=== PATIENT | female | born 1950 | race Caucasian/White ===

== ENCOUNTER 2018-10-26 20:05 | Inpatient (IN) ==
--- NOTE | 2018-10-26 20:17 | Emergency Department Note ---
Disposition Clinical Impression: Generalized weakness Valproic acid toxicity Qualifiers: Encounter type: initial encounter Injury intent: accidental or unintentional Qualified Code(s): T42.6X1A - Poisoning by other antiepileptic and sedative-h ypnotic drugs, accidental (unintentional), initial encounter Disposition: Admitted As Inpatient Condition: Good Referrals: Debra Jose CNP [Primary Care Provider] - Forms: ED Satisfaction Letter, Work/School Release Time of Disposition: 21:24 Weakness HPI - General Chief complaint: ED General Medical Stated complaint: Weakness, general illness onset this AM Time Seen by Provider: 10/26/18 20:12 Source: patient, family, EMS Mode of arrival: EMS Limitations: no limitations Nursing Notes Reviewed: Yes Vital Signs Reviewed: Yes - History of Present Illness HPI Narrative: Patient presents with general weakness that has been worse since this morning. She states she recently has been treated with an antibiotic for urinary tract infection and is "almost done with it". She indicates she still has some urinary troubles but cannot articulate what they are. She has had a previous stroke with right-sided deficits for which he wears a right ankle brace. She denies any new localized numbness, tingling or weakness. She states she is been on her normal medicines were normal oral intake. She denies headache or visual changes. She denies neck pain or stiffness. She denies chest pain or palpitations. She has not had increased shortness of breath does admit to COPD with wheezing. She uses an occasional inhaler. She denies abdominal pain, nausea, vomiting or diarrhea. She denies any ill exposures. She has not had recent fall or injury. She is noted by EMS to have a room air saturation of 89% was placed on O2. On arrival she has a blood sugar 267. EMS did transmit an EK G performed at 7:42 PM. This showed a sinus rhythm with a rate of 107, axis of 70, WA interval of 1:30 and a QT/QTC of 340/422. She had slight lateral ST depression on V5 and V6. No other acute ST or T-wave changes are seen for ischemia or infarction. This is on my interpretation. Pt Subjective Complaint: generalized weakness/fatigue - Related Data Home Medications Medication Instructions Recorded Confirmed ARIPiprazole [Aripiprazole Odt] 15 mg PO DAILY 10/26/18 10/26/18 Albuterol Sulfate [Albuterol 8.5 gm IH Q6H PRN 10/26/18 10/26/18 Sulfate Hfa] Amlodipine Besylate 10 mg PO DAILY 10/26/18 10/26/18 Atorvastatin [Lipitor] 20 mg PO HS 10/26/18 10/26/18 Benztropine Mesylate 1 mg PO DAILY 10/26/18 10/26/18 Carbidopa/Levodopa 1 each PO TID 10/26/18 10/26/18 [Carbidopa-Levodopa 25-100 Tab] Divalproex (12 HR) [Depakote (12 500 mg PO BID 10/26/18 10/26/18 HR)] Lisinopril [Zestril] 20 mg PO DAILY 10/26/18 10/26/18 hydroCHLOROthiazide 25 mg PO DAILY 10/26/18 10/26/18 [Hydrochlorothiazide] metFORMIN [Glucophage] 1,000 mg PO BIDWM 10/26/18 10/26/18 Allergies Allergy/AdvReac Type Severity Reaction Status Date / Time No Known Allergies Allergy Verified 11/16/17 13:24 All systems ED: reviewed and negative except as stated. Past Medical History - Past Medical History Attestation: Yes The following information was validated with the patient. Source: patient, old records reviewed, obtained from family, nursing notes reviewed Medical history: Reports: COPD, CVA, hypertension Surgical history: Reports: hysterectomy - Social History Smoking Status: Current every day smoker Smokeless Tobacco Status: No Alcohol use: Reports: none Drug use: Reports: none Physical Exam - General Limitations: physical limitation (Prior stroke) General appearance: alert, in no apparent distress - Head Head exam: atraumatic, normocephalic, normal inspection - Eye Eye exam: Present: normal appearance, PERRL, EOMI. Absent: scleral icterus, conjunctival injection - ENT ENT exam: normal exam, normal oropharynx, mucous membranes moist - Neck Neck exam: Present: normal inspection, full ROM, trachea midline. Absent: tenderness, lymphadenopathy - Chest Chest inspection: Present: normal inspection, symmetric chest wall rise - Respiratory Respiratory exam: Present: wheezes, prolonged expiratory phase. Absent: respiratory distress, accessory muscle use - Cardiovascular Cardiovascular exam: Present: regular rate, normal rhythm, tachycardia, normal heart sounds - Abdominal Exam Abdominal exam: Present: soft, Non-Tender, normal bowel sounds. Absent: tenderness, distention, guarding, rebound, rigidity - Extremities Exam Extremities exam: Present: normal inspection, full ROM, normal capillary refill, other (Patient has a brace on her right ankle. She has no tenderness to compression of the calves or thighs.). Absent: tenderness, pedal edema - Expanded Lower Extremity Exam Neurovascular/Tendon exam: Present: normal capillary refill Gait: not tested/not observed - Neurological Exam Neurological exam: Present: alert, oriented X3 - Psychiatric Psychiatric exam: Present: normal affect, normal mood - Skin Skin exam: Present: warm, dry, intact, normal color. Absent: rash, diaphoresis, pallor Course Course Narrative: 2124: With return of all testing, the patient and her sons are advised of results. She continues to feel weak, has an elevated lactic acid and is prerenal on her kidney function. She is written for a liter of fluids and a page has been placed to Dr. Ponce to discuss inpatient observation and hydrat ion. At this point she has not had a fever or leukocytosis. She is finishing her last dose antibiotics for urinary tract infection tonight and does not show current urinary tract infection. I will discuss other treatment with Dr. Ponce with admission orders. 2129: Care is discussed with Dr. Ponce. He is agreeable with observation with hydration. He does not want started by medics this time. The patient does not appear to be septic. Repeat exam is of improved mental status. She has good skin turgor. She does not have any persistent tachycardia or hypotension. She will not need to go on continued aggressive hydration or antibiotics at this time. Verbal orders have been obtained for her observation. Vital Signs Temperature 99.4 F 10/26/18 20:08 Pulse Rate 99 10/26/18 20:08 Respiratory Rate 16 10/26/18 20:08 Blood Pressure 144/83 10/26/18 20:08 O2 Sat by Pulse Oximetry 97 10/26/18 20:08 Temperature 99.4 F 10/26/18 20:08 Pulse Rate 99 10/26/18 20:08 Respiratory Rate 16 10/26/18 20:08 Blood Pressure 144/83 10/26/18 20:08 O2 Sat by Pulse Oximetry 97 10/26/18 20:08 Oxygen Delivery Oxygen Delivery Nasal Cannula Weakness - Differential Diagnosis Differential Diagnosis: Likely: anemia, hypoglycemia, sepsis/infection, dehydration, medication effect, metabolic, thyroid/endocrine disorder - Medical Records Medical records reviewed: Yes I reviewed the patient's medical records. - Lab Data Lab results reviewed: Yes I reviewed the patient's lab results. Result diagrams: 10/26/18 20:30 10/26/18 20:30 Lab Results 10/26/18 10/26/18 10/26/18 Range/Units 20:30 20:30 20:30 WBC 9.6 (4.3-11.1) K/mcL RBC 4.51 (3.82-4.97) M/mcL Hgb 14.0 (11.5-15.4) g/dL Hct 41.5 (35.3-44.9) % MCV 92.0 (83.0-100.0) fL MCH 31.0 (28.0-33.3) pg MCHC 33.7 (31.6-35.5) g/dL RDW 13.0 (11.5-14.5) % Plt Count 128 L (140-400) K/mcL MPV 12.4 (9.4-12.4) fL Immature Gran % 0.5 (0-4) % Seg Neutrophils % 86.2 % Lymphocytes % 6.1 % Monocytes % 6.3 % Eosinophils % 0.6 % Basophils % 0.3 % Neutrophils # 8.3 (1.6-8.9) K/mcL Lymphocytes # 0.6 (0.6-4.6) K/mcL Monocytes # 0.6 (0.0-1.3) K/mcL Eosinophils # 0.1 (0.0-0.6) K/mcL Basophils # 0.0 (0.0-0.2) K/mcL Sodium 142 (136-145) mEq/L Potassium 3.1 L (3.5-5.1) mEq/L Chloride 103 (98-107) mEq/L Carbon Dioxide 26 (23-29) mEq/L BUN 29 H (8-23) mg/dL Creatinine 0.84 (0.60-1.20) mg/dL Est GFR ( Amer) > 60 (> 60) Est GFR (Non-Af Amer) > 60 (> 60) BUN/Creatinine Ratio 35 H (6-26) Glucose 232 H (70-105) mg/dL Calculated Osmolality 307 H (280-300) Lactic Acid 3.0 H (0.5-2.2) mmol/L Calcium 9.5 (8.6-10.3) mg/dL Total Bilirubin 0.6 (0.3-1.0) mg/dL Direct Bilirubin 0.2 (0.0-0.2) mg/dL Indirect Bilirubin 0.4 (0.0-1.2) mg/dL AST 11 L (13-39) Units/L ALT 2 L (7-52) Units/L Alkaline Phosphatase 56 (34-104) Units/L Troponin I 0.03 (< 0.04) ng/mL Serum Total Protein 7.1 (6.4-8.9) g/dL Albumin 4.2 (3.5-5.7) g/dL Globulin 2.9 (2.4-3.5) g/dL Albumin/Globulin Ratio 1.4 (1.1-2.2) Urine Color (Yellow) Urine Clarity (Clear) Urine pH (5.0-8.0) pH Units Ur Specific [place] (1.010-1.025) Urine Protein (Neg-Trace) mg/dL Urine Glucose (UA) (Normal) mg/dL Urine Ketones (Negative) mg/dL Urine Blood (Negative) Urine Nitrite (Negative) Urine Bilirubin (Negative) Urine Urobilinogen (Normal) mg/dL Ur Leukocyte Esterase (Negative) Urine Microscopic WBC (0-3) per hpf Ur Squamous Epith Cells (None-Few) per lpf Amorphous Sediment (Few) Hyaline Casts (None-Few) per lpf Urine Mucus (Few) Ur Culture Indicated? (NO) Valproic Acid (50-100) mcg/mL 10/26/18 10/26/18 Range/Units 20:30 20:59 WBC (4.3-11.1) K/mcL RBC (3.82-4.97) M/mcL Hgb (11.5-15.4) g/dL Hct (35.3-44.9) % MCV (83.0-100.0) fL MCH (28.0-33.3) pg MCHC (31.6-35.5) g/dL RDW (11.5-14.5) % Plt Count (140-400) K/mcL MPV (9.4-12.4) fL Immature Gran % (0-4) % Seg Neutrophils % % Lymphocytes % % Monocytes % % Eosinophils % % Basophils % % Neutrophils # (1.6-8.9) K/mcL Lymphocytes # (0.6-4.6) K/mcL Monocytes # (0.0-1.3) K/mcL Eosinophils # (0.0-0.6) K/mcL Basophils # (0.0-0.2) K/mcL Sodium (136-145) mEq/L Potassium (3.5-5.1) mEq/L Chloride (98-107) mEq/L Carbon Dioxide (23-29) mEq/L BUN (8-23) mg/dL Creatinine (0.60-1.20) mg/dL Est GFR ( Amer) (> 60) Est GFR (Non-Af Amer) (> 60) BUN/Creatinine Ratio (6-26) Glucose (70-105) mg/dL Calculated Osmolality (280-300) Lactic Acid (0.5-2.2) mmol/L Calcium (8.6-10.3) mg/dL Total Bilirubin (0.3-1.0) mg/dL Direct Bilirubin (0.0-0.2) mg/dL Indirect Bilirubin (0.0-1.2) mg/dL AST (13-39) Units/L ALT (7-52) Units/L Alkaline Phosphatase (34-104) Units/L Troponin I (< 0.04) ng/mL Serum Total Protein (6.4-8.9) g/dL Albumin (3.5-5.7) g/dL Globulin (2.4-3.5) g/dL Albumin/Globulin Ratio (1.1-2.2) Urine Color Yellow (Yellow) Urine Clarity Clear (Clear) Urine pH 5.5 (5.0-8.0) pH Units Ur Specific [place] 1.020 (1.010-1.025) Urine Protein 100 H (Neg-Trace) mg/dL Urine Glucose (UA) Normal (Normal) mg/dL Urine Ketones 40 H (Negative) mg/dL Urine Blood Negative (Negative) Urine Nitrite Negative (Negative) Urine Bilirubin Negative (Negative) Urine Urobilinogen Normal (Normal) mg/dL Ur Leukocyte Esterase Negative (Negative) Urine Microscopic WBC 0-3 (0-3) per hpf Ur Squamous Epith Cells Few (None-Few) per lpf Amorphous Sediment Few (Few) Hyaline Casts Moderate H (None-Few) per lpf Urine Mucus Few (Few) Ur Culture Indicated? NO (NO) Valproic Acid > 150 H* (50-100) mcg/mL - Radiology Data Radiology results reviewed: Yes I reviewed the patient's radiology results. Single view chest x-ray is performed. This does not demonstrate evidence for infiltrate, effusion, pneumothorax, foreign body. Patient has mild increase interstitial markings and hyperexpansion. The cardiac silhouette is normal. I do not see abnormality to the osseous structures of the chest. There are no chest x-rays for comparison. This is on my interpretation. Impressions Chest X-Ray 10/26/18 20:18 IMPRESSION: No acute process. D/ / Jesus Silverman MD / Jesus Silverman MD Interpreting Provider: Jesus Silverman MD - EKG Data EKG attestation: Yes I reviewed and interpreted this EKG. EKG shows normal: sinus rhythm, axis, intervals, QRS complexes, ST-T waves Rate: tachycardia (103) Interpretation: no acute changes, other (Plan artifact without other acute ST or T-wave changes for ischemia or infarction.)
[2018-10-26] MEDS ORDERED: Ipratropium/Albuterol Neb 3 ML IH ONE (20:18)
[2018-10-26 20:39] LABS: Basophils % 0.3 %; Eosinophils # 0.1 K/mcL (0.0-0.6); Eosinophils % 0.6 %; Hematocrit 41.5 % (35.3-44.9); Immature Granulocytes % 0.5 % (0-4); Lymphocytes # 0.6 K/mcL (0.6-4.6); Lymphocytes % 6.1 %; Mean Corpuscular HGB Conc 33.7 g/dL (31.6-35.5); Mean Platelet Volume 12.4 fL (9.4-12.4); Monocytes # 0.6 K/mcL (0.0-1.3); Monocytes % 6.3 %; Neutrophils # 8.3 K/mcL (1.6-8.9); Platelet Count 128 K/mcL (140-400); Red Blood Count 4.51 M/mcL (3.82-4.97); Segmented Neutrophils % 86.2 %; White Blood Count 9.6 K/mcL (4.3-11.1)
[2018-10-26 21:01] LABS: Alanine Aminotransferase 2 Units/L (7-52); Albumin 4.2 g/dL (3.5-5.7); Albumin/Globulin Ratio 1.4 (1.1-2.2); Alkaline Phosphatase 56 Units/L (34-104); Aspartate Amino Transferase 11 Units/L (13-39); BUN/Creatinine Ratio 35 (6-26); Bilirubin,Direct 0.2 mg/dL (0.0-0.2); Bilirubin,Indirect 0.4 mg/dL (0.0-1.2); Bilirubin,Total 0.6 mg/dL (0.3-1.0); Blood Urea Nitrogen 29 mg/dL (8-23); Calcium 9.5 mg/dL (8.6-10.3); Carbon Dioxide 26 mEq/L (23-29); Chloride 103 mEq/L (98-107); Globulin 2.9 g/dL (2.4-3.5); Glucose 232 mg/dL (70-105); Osmolality,Calculated 307 (280-300); Potassium 3.1 mEq/L (3.5-5.1); Sodium 142 mEq/L (136-145); Total Protein 7.1 g/dL (6.4-8.9); Troponin I 0.03 ng/mL (< 0.04); eGFR For African Americans > 60 (> 60); eGFR For Non-African Americans > 60 (> 60)
[2018-10-26 21:05] LABS: Bilirubin,Urine Negative (Negative); Blood,Urine Negative (Negative); Clarity,Urine Clear (Clear); Color,Urine Yellow (Yellow); Glucose,Urine (UA) Normal (Normal); Ketones,Urine 40 mg/dL (Negative); Leukocyte Esterase,Urine Negative (Negative); Nitrite,Urine Negative (Negative); PH,Urine 5.5 pH Units (5.0-8.0); Protein,Urine 100 mg/dL (Neg-Trace); Urobilinogen,Urine Normal (Normal)
[2018-10-26 21:13] LABS: Amorphous Sediment,Urine Few (Few); Hyaline Casts,Urine Moderate per lpf (None-Few); Mucus,Urine Few (Few); Squamous Epithelial Cell,Urine Few per lpf (None-Few); WBC,Urine 0-3 per hpf (0-3)
[2018-10-26] MEDS ORDERED: 0.9 % Sodium Chloride 1,000 ML IVC ONE (21:21)
[2018-10-26] MEDS: Ipratropium/Albuterol Neb 3 ML IH SCH (23:30)
[2018-10-26] MEDS ORDERED: MOM Conc 10 ML UD.LIQ PO PRN (23:59)
[2018-10-26] MEDS ORDERED: Mag Hydrox/Al Hydrox/Simeth 30 ML UDC PO PRN (23:59)
[2018-10-26] MEDS ORDERED: Naloxone 0.4 MG/ML INJ IVP PRN (23:59)
[2018-10-26] MEDS ORDERED: Albuterol 2.5 MG/3 ML NEBULIZER IH PRN (23:59)
[2018-10-26] MEDS ORDERED: Ondansetron ODT 4 MG TAB.RAPDIS SL PRN (23:59)
[2018-10-27] MEDS: 0.9 % Sodium Chloride 1,000 ML IVC SCH ×2 (01:04→16:53)
[2018-10-27] MEDS ORDERED: levoFLOXacin 500 MG/100 ML 500 MG/100 ML BAG IVPB ONE (01:22)
[2018-10-27] MEDS: Ipratropium/Albuterol Neb 3 ML IH SCH ×2 (03:52→09:32)
[2018-10-27 05:41] LABS: BUN/Creatinine Ratio 42 (6-26); Blood Urea Nitrogen 25 mg/dL (8-23); Calcium 8.7 mg/dL (8.6-10.3); Carbon Dioxide 28 mEq/L (23-29); Chloride 106 mEq/L (98-107); Glucose 115 mg/dL (70-105); Osmolality,Calculated 301 (280-300); Potassium 3.3 mEq/L (3.5-5.1); Sodium 143 mEq/L (136-145); eGFR For African Americans > 60 (> 60); eGFR For Non-African Americans > 60 (> 60)
[2018-10-27] MEDS ORDERED: *HR* Metformin 500 MG TABLET PO SCH (08:00)
[2018-10-27] MEDS ORDERED: hydroCHLOROthiazide 25 MG TABLET PO SCH (09:00)
[2018-10-27] MEDS: ARIPiprazole 5 MG TABLET PO SCH (09:49)
[2018-10-27] MEDS: Carbidopa/Levodopa 25/100 TABLET PO SCH ×3 (09:50→20:06)
[2018-10-27] MEDS: amLODIPine 5 MG TABLET PO SCH (09:50)
[2018-10-27] MEDS: Lisinopril 20 MG TABLET PO SCH (09:50)
[2018-10-27] MEDS: Lactobacillus 1 EACH CAP.SPRINK PO SCH ×2 (09:50→20:06)
[2018-10-27] MEDS ORDERED: Azithromycin 250 MG TABLET PO ONE (12:11)
--- NOTE | 2018-10-27 12:17 | Internal Med History&Physical ---
Date of Encounter: 10/27/18 Time of Encounter: 11:30 Assessment and Plan (1) Lactic acidosis Current visit: Yes Status: Acute Now resolved. Uric acid level this morning was WNL at 1.9. Antibiotics will be given for probable respiratory infection since pro calcitonin level elevated 0.41. (2) Hypertension Current visit: Yes Status: Chronic Continue amlodipine and lisinopril. HCTZ will be held to lessen azotemia and hypokalemia. Qualifiers: Hypertension type: essential hypertension Qualified Code(s): I10 - Essential (primary) hypertension (3) DM type 2 (diabetes mellitus, type 2) Current visit: Yes Status: Chronic Hold metformin due to chronic diarrhea. Check hemoglobin A1c in a.m. Qualifiers: Diabetes mellitus long-term insulin use: without rodent exterminator use Diabetes mellitus complication status: without complication Qualified Code(s): E11.9 - Type 2 diabetes mellitus without complications (4) Hypokalemia Current visit: Yes Status: Acute Likely due to HCTZ use. Supplemental potassium will be given and HCTZ will be held. Recheck labs in a.m. (5) Parkinsons disease Current visit: Yes Status: Acute Continue Sinemet (6) Bronchitis Current visit: Yes Status: Acute Zithromax will be ordered. Recheck labs in a.m. (7) Azotemia Current visit: Yes Status: Acute Hold HCTZ and Rx IV fluids. Recheck labs in a.m. (8) Valproic acid toxicity Current visit: Yes Status: Acute Hold VPA and recheck labs in a.m. Qualifiers: Encounter type: initial encounter Injury intent: accidental or unintentional Qualified Code(s): T42.6X1A - Poisoning by other antiepileptic and sedative-hypnotic drugs, accidental (unintentional), initial encounter Internal Medicine - H&P: HPI Chief complaint: Weakness, hypokalemia, elevated VPA level Admitted From: Emergency Dept Plans for Post Hospital Care: Home History of present illness: Ms. Brock is a 68 year old female who came to emergency room stating she had progressive weakness over the preceding hours. She reports cough productive of yellow mucus for the past 2 weeks. She denies significant fevers chills vomiting or pain. She reports chronic diarrhea which she attributes to metformin use. She was evaluated in emergency room and was found to have normal WBC but left shift on WBC differential. She had hypokalemia with potassium level of 3.1. VPA was elevated at > 150. Lactic acid was elevated at 3.0. She was admitted to [facility] floor for ongoing care needs. She states VPA dose has not been adjusted recently and she has not taken additional medication above prescribed amounts. She has not felt unusually unsteady in walking. She uses a Rollator walker for ambulation. Her respiratory history is significant for having smoked since age 18 a total of approximately 35 years never exceeding 1 pack per day. She has not been diagnosed with COPD and does not use home oxygen. She has not been tested for sleep apnea. Past Med Surg Social Fam HX - Past Medical History Medical history: COPD, CVA, hypertension - Past Surgical History Surgical History: hysterectomy - Social History Smoking Status: Current every day smoker Packs per day: 1/2 Smokeless Tobacco Status: No Alcohol use: none Drug use: none - Family History Mother Hx Family Neurologic Disorders: Yes Father Hx Family Neurologic Disorders: Yes Internal Medicine - H&P: Meds ARIPiprazole [Aripiprazole Odt] 15 mg PO DAILY 10/26/18 [History] Albuterol Sulfate [Albuterol Sulfate Hfa] 8.5 gm IH Q6H PRN 10/26/18 [History] Amlodipine Besylate 10 mg PO DAILY 10/26/18 [History] Atorvastatin [Lipitor] 20 mg PO HS 10/26/18 [History] Benztropine Mesylate 1 mg PO DAILY 10/26/18 [History] Carbidopa/Levodopa [Carbidopa-Levodopa 25-100 Tab] 1 each PO TID 10/26/18 [History] Divalproex (12 HR) [Depakote (12 HR)] 500 mg PO BID 10/26/18 [History] Lisinopril [Zestril] 20 mg PO DAILY 10/26/18 [History] hydroCHLOROthiazide [Hydrochlorothiazide] 25 mg PO DAILY 10/26/18 [History] metFORMIN [Glucophage] 1,000 mg PO BIDWM 10/26/18 [History] Allergy/AdvReac Type Severity Reaction Status Date / Time No Known Allergies Allergy Verified 11/16/17 13:24 All Systems PM: A 10-system review of systems was performed and is negative for pertinent findings except as documented above in the HPI. Review of systems: Gen.: She states her weight is stable for several months Cardiovascular: She has history of hypertension but denies RI heart failure angina DVT or pulmonary embolus Respiratory: As per history of present illness GI: She denies disorders of her liver gallbladder or exocrine pancreas : She has had occasional UTIs. She denies other kidney or bladder disorders. Neurologic: She has had CVAs involving left posterior periventricular white matter, bilateral thalami,paramidline jose, and left cerebellar hemisphere. Most recent brain MRI was 02/04/2018. She has been diagnosed with Parkinson's disease. She denies seizures. She has seen a neurologist at [facility] in the past but does not follow routinely. Endocrine: She was diagnosed with DM 2 approximately 2017. She has chronic diarrhea which she attributes to metformin use. She denies known thyroid disease or hyperlipidemia. Hematology/oncology: She denies blood disorders cancers or anemia Psychiatric: She has psychiatric diagnoses but does not remember the names. She is on aripiprazole, benztropine, and VPA. Musko skeletal: She denies arthritis gout or other bone joint or muscle disorders. - Constitutional Vitals: Temp Pulse Resp BP Pulse Ox 98.4 F 75 20 106/62 92 10/27/18 10:00 10/27/18 10:00 10/27/18 10:00 10/27/18 10:00 10/27/18 09:34 Exam: Gen.: She is a well-developed and nourished female resting comfortably in bed who appears in no acute distress at present time HEENT: Head is atraumatic and normocephalic. Eyes: EOMI. There is no scleral icterus. Mouth: Mucosa is moist. Neck: Supple and nontender. There is no thyromegaly or adenopathy noted. Heart: Regular without murmurs gallops or ectopics Lungs: No wheezes or crackles are heard. There is no egophony. Abdomen: Soft and nontender. No masses or guarding are noted. Extremities: There is no cyanosis edema or clubbing noted. Dorsalis pedis and posterior tibial pulses are trace to 1+ palpable bilaterally. Neurologic: Mental status: She is talkative and appropriate historian. Cranial nerves: Smile is symmetric. There is slight flattening of the right nasolabial fold at rest. Forehead wrinkles bilaterally. Tongue protrudes midline. EOMI. Motor: She has slight tremor at rest of her jaw. She has cogwheeling and rigidity on passive range of motion of her wrists and elbows. There is no prona tor drift. Cerebellar: Finger to nose is intact bilaterally. Skin: Warm and dry Internal Med - H&P Results - Labs CBC & Chem 7: 10/26/18 20:30 10/27/18 05:13 Labs: Short CBC 10/26/18 Range/Units 20:30 WBC 9.6 (4.3-11.1) K/mcL Hgb 14.0 (11.5-15.4) g/dL Hct 41.5 (35.3-44.9) % Plt Count 128 L (140-400) K/mcL Neutrophils # 8.3 (1.6-8.9) K/mcL BMP 10/26/18 10/27/18 20:30 05:13 Sodium 142 143 Potassium 3.1 L 3.3 L Chloride 103 106 Carbon Dioxide 26 28 BUN 29 H 25 H Creatinine 0.84 0.60 Glucose 232 H 115 H Calcium 9.5 8.7 Cardiac Enzymes 10/26/18 Range/Units 20:30 Troponin I 0.03 (< 0.04) ng/mL Liver Function 10/26/18 Range/Units 20:30 Total Bilirubin 0.6 (0.3-1.0) mg/dL Direct Bilirubin 0.2 (0.0-0.2) mg/dL AST 11 L (13-39) Units/L ALT 2 L (7-52) Units/L Alkaline Phosphatase 56 (34-104) Units/L Albumin 4.2 (3.5-5.7) g/dL Urine 10/26/18 Range/Units 20:59 Urine Color Yellow (Yellow) Urine Clarity Clear (Clear) Urine pH 5.5 (5.0-8.0) pH Units Ur Specific [place] 1.020 (1.010-1.025) Urine Protein 100 H (Neg-Trace) mg/dL Urine Glucose (UA) Normal (Normal) mg/dL - Impressions ITS Impressions Chest X-Ray 10/26/18 20:18 IMPRESSION: No acute process. D/ / Jesus Silverman MD / Jesus Silverman MD Interpreting Provider: Jesus Silverman MD
[2018-10-27] MEDS: 0.45 % Sodium Chloride w/KCl 20 MEQ/1,000 ML MLS IVC SCH (13:50)
--- NOTE | 2018-10-27 15:10 | Electrocardiograph Report ---
[place] [id number] Test Date: 2018-10-26 Pat Name: Halle Brock Department: EDP-16 Room: [facility] Gender: F Sanitation Worker: : 1950 Requested By: Vito Nation Order Number: [id number] Reading MD: Raheel Peterson Measurements Intervals [place] Rate: 103 P: 73 MA: 152 QRS: 49 QRSD: 82 T: 15 QT: 350 QTc: 459 Interpretive Statements Sinus tachycardia right atrial enlargement Poor R wave progression BASELINE ARTIFACT Electronically Signed On 10-27-2018 15:09:26 EDT by Raheel Peterson
[2018-10-27] MEDS: Divalproex (12 HR) 250 MG TABLET PO SCH (20:06)
[2018-10-28] MEDS: 0.45 % Sodium Chloride w/KCl 20 MEQ/1,000 ML MLS IVC SCH (00:23)
[2018-10-28] MEDS ORDERED: *HR* Enoxaparin 40 MG/0.4 ML SYRINGE SQ SCH (06:00)
[2018-10-28 06:54] LABS: Basophils % 0.4 %; Eosinophils # 0.4 K/mcL (0.0-0.6); Eosinophils % 7.1 %; Hematocrit 38.8 % (35.3-44.9); Hemoglobin 12.9 g/dL (11.5-15.4); Immature Granulocytes % 0.2 % (0-4); Lymphocytes # 1.8 K/mcL (0.6-4.6); Lymphocytes % 35.3 %; Mean Corpuscular HGB Conc 33.2 g/dL (31.6-35.5); Mean Corpuscular Hemoglobin 30.8 pg (28.0-33.3); Mean Corpuscular Volume 92.6 fL (83.0-100.0); Monocytes # 0.4 K/mcL (0.0-1.3); Monocytes % 8.5 %; Neutrophils # 2.4 K/mcL (1.6-8.9); Platelet Count 105 K/mcL (140-400); Red Blood Count 4.19 M/mcL (3.82-4.97); Red Cell Distribution Width 12.7 % (11.5-14.5); Segmented Neutrophils % 48.5 %
[2018-10-28 07:14] LABS: BUN/Creatinine Ratio 23 (6-26); Blood Urea Nitrogen 13 mg/dL (8-23); Calcium 8.6 mg/dL (8.6-10.3); Carbon Dioxide 30 mEq/L (23-29); Chloride 105 mEq/L (98-107); Glucose 114 mg/dL (70-105); Osmolality,Calculated 293 (280-300); Potassium 3.3 mEq/L (3.5-5.1); Sodium 141 mEq/L (136-145); eGFR For African Americans > 60 (> 60); eGFR For Non-African Americans > 60 (> 60)
[2018-10-28 08:26] VITALS: BP 121/67
[2018-10-28] MEDS: ARIPiprazole 5 MG TABLET PO SCH (08:33)
[2018-10-28] MEDS: Carbidopa/Levodopa 25/100 TABLET PO SCH (08:33)
[2018-10-28] MEDS: Divalproex (12 HR) 250 MG TABLET PO SCH (08:33)
[2018-10-28] MEDS: amLODIPine 5 MG TABLET PO SCH (08:33)
[2018-10-28] MEDS: Lactobacillus 1 EACH CAP.SPRINK PO SCH (08:33)
[2018-10-28] MEDS: Lisinopril 20 MG TABLET PO SCH (08:33)
[2018-10-28 09:37] LABS: Estimated Average Glucose 146 mg/dl
--- NOTE | 2018-10-28 10:01 | Discharge Summary ---
Orders not resulted at time of discharge: Pending orders 10/26/18 20:30 Culture,Blood [] Stat Date of Encounter: 10/28/18 Time of Encounter: 09:50 - Discharge Diagnosis (1) Lactic acidosis Priority: Primary Status: Resolved (2) Bronchitis Priority: Secondary Status: Acute (3) Hypertension Priority: Secondary Status: Chronic Qualifiers: Hypertension type: essential hypertension Qualified Code(s): I10 - Essential (primary) hypertension (4) DM type 2 (diabetes mellitus, type 2) Priority: Secondary Status: Chronic Qualifiers: Diabetes mellitus terminologist insulin use: without terminologist use Diabetes mellitus complication status: without complication Qualified Code(s): E11.9 - Type 2 diabetes mellitus without complications (5) Hypokalemia Priority: Secondary Status: Acute (6) Parkinsons disease Priority: Secondary Status: Acute (7) Azotemia Priority: Secondary Status: Resolved (8) Valproic acid toxicity Priority: Secondary Status: Resolved Qualifiers: Encounter type: initial encounter Injury intent: accidental or unintentional Qualified Code(s): T42.6X1A - Poisoning by other antiepileptic and sedative-hypnotic drugs, accidental (unintentional), initial encounter Hospital course: Ms. Brock is a 68 year old female who came to emergency room stating she had progressive weakness over the preceding hours. She reports cough productive of yellow mucus for the past 2 weeks. She denies significant fevers chills vomiting or pain. She reports chronic diarrhea which she attributes to metformin use. She was evaluated in emergency room and was found to have normal WBC but left shift on WBC differential. She had hypokalemia with potassium level of 3.1. VPA was elevated at > 150. Lactic acid was elevated at 3.0. She was admitted to [facility] floor for ongoing care needs. Initial orders were written by the emergency room physician. I saw her on October 27 and performed a history and physical. By the time I saw her the lactic acid level was WNL. Pro-calcitonin level was elevated at 0.41. She was started on oral Zithromax with lactobacillus. She remained afebrile during her hospital stay. She will continue with Zithromax and Lactobacillus for 3 additional days at discharge. HCTZ was discontinued to lessen azotemia and hypokalemia. BUN and creatinine improved to 13 and 0.57 respectively by day of discharge. Supplement potassium was given and potassium level improved to 3.3 by day of discharge. She will be given supplemental potassium for 3 additional days at discharge and remain off HCTZ. She will continue amlodipine and lisinopril. Her PCP can follow-up labs as needed. Magnesium level returned slightly low at 1.5. She will be given magnesium oxide 400 mg daily for 3 days at discharge and remain off HCTZ. VPA was held and her level decreased to 37 by day of discharge. She will restart VPA at a dose of 500 mg twice a day. Her PCP can monitor VPA level. Hemoglobin A1c returned satisfactory at 6.7%. Metformin will be decreased to 500 mg twice a day since she complained of chronic diarrhea. On October 28 she felt significantly improved and stable for discharge home. She declined staying an additional day in the hospital for PT/OT evaluation stating she has had previous courses of therapy. She inquired about home health services and these will be ordered. She will follow with her PCP Debra Jose CNP within 1 week. - Time Spent with Patient Total time spent providing and/or coordinating discharge services: - Discharge Medications Prescriptions: New Lactobacillus [Culturelle] 1 each PO BID #6 cap.sprink metFORMIN [Glucophage] 500 mg PO BIDWM tablet Magnesium Oxide 400 mg PO DAILY #3 tablet Potassium Chloride 10 meq PO DAILY #3 tab.er.prt Azithromycin [Zithromax] 250 mg PO DAILY #3 tablet Continued Carbidopa/Levodopa [Carbidopa-Levodopa 25-100 Tab] 1 each PO TID Benztropine Mesylate 1 mg PO DAILY Lisinopril [Zestril] 20 mg PO DAILY Atorvastatin [Lipitor] 20 mg PO HS ARIPiprazole [Aripiprazole Odt] 15 mg PO DAILY Amlodipine Besylate 10 mg PO DAILY Divalproex (12 HR) [Depakote (12 HR)] 500 mg PO BID Albuterol Sulfate [Albuterol Sulfate Hfa] 8.5 gm IH Q6H PRN PRN Reason: Dyspnea Discontinued hydroCHLOROthiazide [Hydrochlorothiazide] 25 mg PO DAILY metFORMIN [Glucophage] 1,000 mg PO BIDWM Home Medications: ARIPiprazole [Aripiprazole Odt] 15 mg PO DAILY 10/26/18 [History] Albuterol Sulfate [Albuterol Sulfate Hfa] 8.5 gm IH Q6H PRN 10/26/18 [History] Amlodipine Besylate 10 mg PO DAILY 10/26/18 [History] Atorvastatin [Lipitor] 20 mg PO HS 10/26/18 [History] Benztropine Mesylate 1 mg PO DAILY 10/26/18 [History] Carbidopa/Levodopa [Carbidopa-Levodopa 25-100 Tab] 1 each PO TID 10/26/18 [History] Divalproex (12 HR) [Depakote (12 HR)] 500 mg PO BID 10/26/18 [History] Lisinopril [Zestril] 20 mg PO DAILY 10/26/18 [History] Azithromycin [Zithromax] 250 mg PO DAILY #3 tablet 10/28/18 [Rx] Lactobacillus [Culturelle] 1 each PO BID #6 cap.sprink 10/28/18 [Rx] Magnesium Oxide 400 mg PO DAILY #3 tablet 10/28/18 [Rx] Potassium Chloride 10 meq PO DAILY #3 tab.er.prt 10/28/18 [Rx] metFORMIN [Glucophage] 500 mg PO BIDWM tablet 10/28/18 [Rx] Allergies/Adverse Reactions: Allergy/AdvReac Type Severity Reaction Status Date / Time No Known Allergies Allergy Verified 11/16/17 13:24 Date of admission: 10/27/18 14:25 Primary care physician: Debra Jose - Constitutional Vitals: Temp Pulse Resp BP Pulse Ox 98.5 F 58 17 121/67 98 10/28/18 08:25 10/28/18 08:25 10/28/18 08:25 10/28/18 08:25 10/28/18 09:17 - Patient Status Disposition: Home Health Service Condition: Good - Discharge Instructions Follow Up With: Debra Jose, GM VIDEO [Primary Care Provider] - 1 week - Diet and Activity Activity: resume usual activities as tolerated Diet: diabetic diet
--- NOTE | 2018-10-28 10:11 | Physician Discharge Referral ---
Home Health/Hosp Referral Info Transfer to: Home Health Attending Provider: Kris Provider in Charge Post Discharge: PCP (Debra Jose CNP) - Diagnosis (1) Lactic acidosis Priority: Primary Status: Resolved (2) Bronchitis Priority: Secondary Status: Acute (3) Hypertension Priority: Secondary Status: Chronic (4) DM type 2 (diabetes mellitus, type 2) Priority: Secondary Status: Chronic (5) Hypokalemia Priority: Secondary Status: Acute (6) Parkinsons disease Priority: Secondary Status: Acute (7) Azotemia Priority: Secondary Status: Resolved (8) Valproic acid toxicity Priority: Secondary Status: Resolved - Respiratory Orders Smoking Cessation: Smoking cessation has been advised. For more information, call the [place] Tobacco Quit Line at 1-786-YRTN-NOW. - Diet/Nutrition Diet/Nutrition Orders: No Concentrated Sweets - Activity Activity Orders: Ambulate - Services Needed Following services are medically necessary services: Nursing, Home Health Aide, Physical Therapy, Occupational Therapy - Transfer Medications Prescriptions: Lactobacillus [Culturelle] 1 each PO BID #6 cap.sprink Magnesium Oxide 400 mg PO DAILY #3 tablet Potassium Chloride 10 meq PO DAILY #3 tab.er.prt Azithromycin [Zithromax] 250 mg PO DAILY #3 tablet Home Medications: ARIPiprazole [Aripiprazole Odt] 15 mg PO DAILY 10/26/18 [History] Albuterol Sulfate [Albuterol Sulfate Hfa] 8.5 gm IH Q6H PRN 10/26/18 [History] Amlodipine Besylate 10 mg PO DAILY 10/26/18 [History] Atorvastatin [Lipitor] 20 mg PO HS 10/26/18 [History] Benztropine Mesylate 1 mg PO DAILY 10/26/18 [History] Carbidopa/Levodopa [Carbidopa-Levodopa 25-100 Tab] 1 each PO TID 10/26/18 [History] Divalproex (12 HR) [Depakote (12 HR)] 500 mg PO BID 10/26/18 [History] Lisinopril [Zestril] 20 mg PO DAILY 10/26/18 [History] Azithromycin [Zithromax] 250 mg PO DAILY #3 tablet 10/28/18 [Rx] Lactobacillus [Culturelle] 1 each PO BID #6 cap.sprink 10/28/18 [Rx] Magnesium Oxide 400 mg PO DAILY #3 tablet 10/28/18 [Rx] Potassium Chloride 10 meq PO DAILY #3 tab.er.prt 10/28/18 [Rx] metFORMIN [Glucophage] 500 mg PO BIDWM tablet 10/28/18 [Rx] Allergies/Adverse Reactions: Allergy/AdvReac Type Severity Reaction Status Date / Time No Known Allergies Allergy Verified 11/16/17 13:24 Certification: Further, I certify that my clinical findings support that this patient is homebound (i.e. 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
== END 2018-10-28 11:00 | disposition home health service (06) | DRG 918 ==
LOC: EMEROOPIK 20:05 → INPPIK 20:05
PROVIDERS: ADMIT Internal Medicine; ATTEND Internal Medicine

== ENCOUNTER 2019-12-15 12:26 | Inpatient (IN) ==
[2019-12-15] MEDS ORDERED: 0.9 % Sodium Chloride 1,000 ML IV ONE (13:00)
[2019-12-15 13:18] LABS: Bilirubin,Urine Negative (Negative); Blood,Urine Negative (Negative); Clarity,Urine Slightly Cloudy (Clear); Color,Urine Yellow (Yellow); Glucose,Urine (UA) Normal (Normal); Ketones,Urine Trace mg/dL (Negative); Leukocyte Esterase,Urine Negative (Negative); Nitrite,Urine Negative (Negative); Protein,Urine 30 mg/dL (Neg-Trace); Specific Gravity,Urine 1.025 (1.010-1.025); Urobilinogen,Urine Normal (Normal)
[2019-12-15 13:27] LABS: Squamous Epithelial Cell,Urine Few per hpf (None-Few); WBC,Urine 0-3 per hpf (0-3)
[2019-12-15 13:28] LABS: Amorphous Sediment,Urine Moderate per hpf (None-Few); Bacteria,Urine Moderate per hpf (None-Few); Hyaline Casts,Urine Moderate per lpf (None Seen); Mucus,Urine Many per lpf (None-Few)
[2019-12-15] MEDS ORDERED: cefTRIAXone 1,000 MG in 0.9 % Sodium Chloride Mini Bag 100 ML IVPB ONE (13:52)
[2019-12-15 13:59] LABS: Basophils % 0.5 %; Eosinophils # 0.2 K/mcL (0.0-0.6); Eosinophils % 2.1 %; Hematocrit 41.2 % (35.3-44.9); Hemoglobin 13.6 g/dL (11.5-15.4); Immature Granulocytes % 0.4 % (0-4); Lymphocytes # 0.7 K/mcL (0.6-4.6); Mean Corpuscular Hemoglobin 29.9 pg (28.0-33.3); Mean Corpuscular Volume 90.5 fL (83.0-100.0); Mean Platelet Volume 12.2 fL (9.4-12.4); Monocytes # 0.6 K/mcL (0.0-1.3); Monocytes % 7.2 %; Neutrophils # 6.2 K/mcL (1.6-8.9); Platelet Count 133 K/mcL (140-400); Red Blood Count 4.55 M/mcL (3.82-4.97); Segmented Neutrophils % 80.8 %; White Blood Count 7.7 K/mcL (4.3-11.1)
[2019-12-15 14:06] LABS: INR 1.2; Prothrombin Time 14.3 Seconds (9.4-12.1)
[2019-12-15 14:08] LABS: Activated Partial Thrombo Time 31.2 Seconds (26.0-36.0)
[2019-12-15 14:13] LABS: Alanine Aminotransferase 13 Units/L (7-52); Albumin 4.4 g/dL (3.5-5.7); Albumin/Globulin Ratio 1.4 (1.1-2.2); Alkaline Phosphatase 61 Units/L (34-104); Aspartate Amino Transferase 14 Units/L (13-39); BUN/Creatinine Ratio 46 (6-26); Bilirubin,Total 0.7 mg/dL (0.3-1.0); Blood Urea Nitrogen 34 mg/dL (8-23); Calcium 9.5 mg/dL (8.6-10.3); Carbon Dioxide 28 mEq/L (23-29); Chloride 99 mEq/L (98-107); Globulin 3.2 g/dL (2.4-3.5); Glucose 126 mg/dL (70-105); Magnesium 1.8 mg/dL (1.6-2.6); Osmolality,Calculated 299 (280-300); Potassium 3.5 mEq/L (3.5-5.1); Sodium 140 mEq/L (136-145); Total Protein 7.6 g/dL (6.4-8.9); Uric Acid 5.3 mg/dL (2.3-7.6); eGFR For African Americans > 60 (> 60); eGFR For Non-African Americans > 60 (> 60)
[2019-12-15 14:17] LABS: Troponin I < 0.03 ng/mL (< 0.04)
[2019-12-15] MEDS ORDERED: Ipratropium/Albuterol Neb 3 ML IH ONE (14:30)
[2019-12-15 18:29] LABS: Adenovirus Not Detected (Not Detect); Bordetella Pertussis Not Detected (Not Detect); Chlamydophila pneumoniae Not Detected (Not Detect); Coronavirus 229E Not Detected (Not Detect); Coronavirus HKU1 Not Detected (Not Detect); Coronavirus NL63 Not Detected (Not Detect); Coronavirus OC43 Not Detected (Not Detect); Human Metapneumovirus Not Detected (Not Detect); Human Rhinovirus/Enterovirus Not Detected (Not Detect); Influenza A Subtype 2009 H1 Not Detected (Not Detect); Influenza B Not Detected (Not Detect); Mycoplasma pneumoniae Not Detected (Not Detect); Parainfluenza Virus 1 Not Detected (Not Detect); Parainfluenza Virus 2 Not Detected (Not Detect); Parainfluenza Virus 3 Not Detected (Not Detect); Parainfluenza Virus 4 Not Detected (Not Detect); Respiratory Syncytial Virus Not Detected (Not Detect); SARS-CoV-2 Not Detected (Not Detect)
[2019-12-15] MEDS ORDERED: Acetaminophen 325 MG TABLET PO PRN (18:36)
[2019-12-15] MEDS ORDERED: Naloxone 0.4 MG/ML INJ IVP PRN (18:36)
[2019-12-15] MEDS ORDERED: Ondansetron 4 MG/2 ML VIAL IVP PRN (18:36)
[2019-12-15] MEDS ORDERED: Ipratropium/Albuterol Neb 3 ML IH PRN (18:39)
[2019-12-15] MEDS: Lactobacillus 1 EACH CAP.SPRINK PO SCH (22:06)
[2019-12-15] MEDS: Divalproex (12 HR) 250 MG TABLET PO SCH (22:06)
[2019-12-15] MEDS: Carbidopa/Levodopa 25/100 TABLET PO SCH (22:06)
[2019-12-15] MEDS: 0.9 % Sodium Chloride 1,000 ML IVC SCH (23:12)
[2019-12-16] MEDS: 0.9 % Sodium Chloride 1,000 ML IVC SCH ×3 (00:02→14:08)
[2019-12-16 07:06] LABS: Hematocrit 36.9 % (35.3-44.9); Hemoglobin 12.3 g/dL (11.5-15.4); Mean Corpuscular HGB Conc 33.3 g/dL (31.6-35.5); Mean Corpuscular Hemoglobin 30.2 pg (28.0-33.3); Mean Corpuscular Volume 90.7 fL (83.0-100.0); Mean Platelet Volume 12.3 fL (9.4-12.4); Platelet Count 102 K/mcL (140-400); Red Blood Count 4.07 M/mcL (3.82-4.97); Red Cell Distribution Width 13.1 % (11.5-14.5); White Blood Count 5.1 K/mcL (4.3-11.1)
[2019-12-16 07:24] LABS: BUN/Creatinine Ratio 45 (6-26); Blood Urea Nitrogen 24 mg/dL (8-23); Calcium 8.2 mg/dL (8.6-10.3); Carbon Dioxide 31 mEq/L (23-29); Chloride 103 mEq/L (98-107); Glucose 128 mg/dL (70-105); Magnesium 1.9 mg/dL (1.6-2.6); Osmolality,Calculated 298 (280-300); Potassium 3.2 mEq/L (3.5-5.1); Sodium 141 mEq/L (136-145); eGFR For African Americans > 60 (> 60); eGFR For Non-African Americans > 60 (> 60)
[2019-12-16] MEDS: Divalproex (12 HR) 250 MG TABLET PO SCH ×2 (08:58→20:15)
[2019-12-16] MEDS: lisinopriL 20 MG TABLET PO SCH (08:59)
[2019-12-16] MEDS: amLODIPine 5 MG TABLET PO SCH (08:59)
[2019-12-16] MEDS: ARIPiprazole 5 MG TABLET PO SCH (08:59)
[2019-12-16] MEDS: Lactobacillus 1 EACH CAP.SPRINK PO SCH ×2 (08:59→20:14)
[2019-12-16] MEDS: *HR* Metformin 500 MG TABLET PO SCH ×2 (09:00→16:42)
[2019-12-16] MEDS: Carbidopa/Levodopa 25/100 TABLET PO SCH ×3 (09:00→20:15)
[2019-12-16] MEDS: cefTRIAXone 1,000 MG in Water for inj. (sterile) 10 ML IVP SCH (14:07)
[2019-12-17 09:15] LABS: Hematocrit 39.8 % (35.3-44.9); Mean Corpuscular HGB Conc 32.7 g/dL (31.6-35.5); Mean Corpuscular Hemoglobin 29.8 pg (28.0-33.3); Mean Corpuscular Volume 91.3 fL (83.0-100.0); Mean Platelet Volume 11.7 fL (9.4-12.4); Platelet Count 108 K/mcL (140-400); Red Blood Count 4.36 M/mcL (3.82-4.97); Red Cell Distribution Width 12.8 % (11.5-14.5); White Blood Count 3.9 K/mcL (4.3-11.1)
[2019-12-17] MEDS: Lactobacillus 1 EACH CAP.SPRINK PO SCH ×2 (09:31→20:19)
[2019-12-17] MEDS: lisinopriL 20 MG TABLET PO SCH (09:31)
[2019-12-17] MEDS: amLODIPine 5 MG TABLET PO SCH (09:31)
[2019-12-17 09:32] LABS: BUN/Creatinine Ratio 42 (6-26); Blood Urea Nitrogen 21 mg/dL (8-23); Calcium 8.2 mg/dL (8.6-10.3); Carbon Dioxide 30 mEq/L (23-29); Chloride 107 mEq/L (98-107); Glucose 192 mg/dL (70-105); Magnesium 1.7 mg/dL (1.6-2.6); Osmolality,Calculated 306 (280-300); Potassium 3.7 mEq/L (3.5-5.1); Sodium 144 mEq/L (136-145); eGFR For African Americans > 60 (> 60); eGFR For Non-African Americans > 60 (> 60)
[2019-12-17] MEDS: Divalproex (12 HR) 250 MG TABLET PO SCH ×2 (09:32→20:20)
[2019-12-17] MEDS: ARIPiprazole 5 MG TABLET PO SCH (09:32)
[2019-12-17] MEDS: Carbidopa/Levodopa 25/100 TABLET PO SCH ×3 (09:32→20:20)
[2019-12-17] MEDS: *HR* Metformin 500 MG TABLET PO SCH ×2 (09:32→16:08)
[2019-12-17] MEDS: 0.9 % Sodium Chloride 1,000 ML IVC SCH (09:58)
[2019-12-17] MEDS: cefTRIAXone 1,000 MG in Water for inj. (sterile) 10 ML IVP SCH (14:07)
[2019-12-18 06:59] VITALS: BP 185/93
[2019-12-18] MEDS: Divalproex (12 HR) 250 MG TABLET PO SCH (07:46)
[2019-12-18] MEDS: amLODIPine 5 MG TABLET PO SCH (07:46)
[2019-12-18] MEDS: *HR* Metformin 500 MG TABLET PO SCH (07:47)
[2019-12-18] MEDS: Carbidopa/Levodopa 25/100 TABLET PO SCH (07:47)
[2019-12-18] MEDS: Lactobacillus 1 EACH CAP.SPRINK PO SCH (07:47)
[2019-12-18] MEDS: lisinopriL 20 MG TABLET PO SCH (07:47)
[2019-12-18] MEDS: ARIPiprazole 5 MG TABLET PO SCH (07:47)
[2019-12-18] MEDS ORDERED: FLU Vac QV 20-21 (6Month+)/PF 0.5 ML SYRINGE IM ONE (10:17)
== END 2019-12-18 10:54 | disposition home health service (06) | DRG 690 ==
LOC: EMEROOPIK 12:26 → INPPIK 12:26
PROVIDERS: ADMIT Family Medicine; ATTEND Family Medicine

== ENCOUNTER 2019-12-20 10:49 | Inpatient (IN) ==
[2019-12-20 12:10] LABS: Basophils % 0.5 %; Eosinophils # 0.2 K/mcL (0.0-0.6); Eosinophils % 2.9 %; Hematocrit 37.8 % (35.3-44.9); Hemoglobin 12.8 g/dL (11.5-15.4); Immature Granulocytes % 0.2 % (0-4); Lymphocytes % 17.7 %; Mean Corpuscular HGB Conc 33.9 g/dL (31.6-35.5); Mean Corpuscular Hemoglobin 30.3 pg (28.0-33.3); Mean Corpuscular Volume 89.4 fL (83.0-100.0); Mean Platelet Volume 11.5 fL (9.4-12.4); Monocytes # 0.5 K/mcL (0.0-1.3); Monocytes % 9.1 %; Neutrophils # 3.9 K/mcL (1.6-8.9); Platelet Count 146 K/mcL (140-400); Red Blood Count 4.23 M/mcL (3.82-4.97); Red Cell Distribution Width 12.7 % (11.5-14.5); Segmented Neutrophils % 69.6 %; White Blood Count 5.6 K/mcL (4.3-11.1)
[2019-12-20 12:22] LABS: Activated Partial Thrombo Time 31.6 Seconds (26.0-36.0); INR 1.4; Prothrombin Time 15.5 Seconds (9.4-12.1)
[2019-12-20 12:25] LABS: BUN/Creatinine Ratio 47 (6-26); Blood Urea Nitrogen 29 mg/dL (8-23); Calcium 9.3 mg/dL (8.6-10.3); Carbon Dioxide 31 mEq/L (23-29); Chloride 102 mEq/L (98-107); Glucose 234 mg/dL (70-105); Osmolality,Calculated 311 (280-300); Potassium 3.2 mEq/L (3.5-5.1); Sodium 144 mEq/L (136-145); eGFR For African Americans > 60 (> 60); eGFR For Non-African Americans > 60 (> 60)
[2019-12-20 12:29] LABS: Troponin I < 0.03 ng/mL (< 0.04)
[2019-12-20 14:59] LABS: Bilirubin,Urine Negative (Negative); Blood,Urine Negative (Negative); Clarity,Urine Clear (Clear); Color,Urine Yellow (Yellow); Glucose,Urine (UA) Normal (Normal); Ketones,Urine Trace mg/dL (Negative); Leukocyte Esterase,Urine Negative (Negative); Nitrite,Urine Negative (Negative); PH,Urine 6.5 pH Units (5.0-8.0); Protein,Urine 30 mg/dL (Neg-Trace); Specific Gravity,Urine 1.025 (1.010-1.025); Urobilinogen,Urine Normal (Normal)
[2019-12-20] MEDS ORDERED: Naloxone 0.4 MG/ML INJ IVP PRN (14:59)
[2019-12-20] MEDS ORDERED: MOM Conc 10 ML UD.LIQ PO PRN (14:59)
[2019-12-20] MEDS ORDERED: Ondansetron 4 MG/2 ML VIAL IVP PRN (14:59)
[2019-12-20] MEDS ORDERED: Mag Hydrox/Al Hydrox/Simeth 30 ML UDC PO PRN (14:59)
[2019-12-20] MEDS ORDERED: Acetaminophen 325 MG TABLET PO PRN (14:59)
[2019-12-20] MEDS ORDERED: *HR* Dextrose 50 % in Water (Vial) 50 ML VIAL IVP PRN (15:08)
[2019-12-20] MEDS ORDERED: D5% in Water 1,000 ML IVC PRN (15:08)
[2019-12-20] MEDS ORDERED: Dextrose Gel 15 GM/37.5 ML TUBE PO PRN ×2 (15:08)
[2019-12-20] MEDS ORDERED: Albuterol 2.5 MG/3 ML NEBULIZER IH PRN (15:10)
[2019-12-20] MEDS ORDERED: Perflutren Lipid Microsphere 1.3 ML in 0.9 % Sodium Chloride 8.7 ML IVP PRN (15:13)
[2019-12-20 15:22] LABS: Mucus,Urine Few per lpf (None-Few); RBC,Urine 0-3 per hpf (0-3); Squamous Epithelial Cell,Urine Few per hpf (None-Few); WBC,Urine 0-3 per hpf (0-3)
[2019-12-20] MEDS: Insulin LISPRO 300 UNITS/3 ML VIAL SQ SCH ×2 (17:06→21:38)
[2019-12-20] MEDS: Divalproex (12 HR) 250 MG TABLET PO SCH (21:34)
[2019-12-20] MEDS: Lactobacillus 1 EACH CAP.SPRINK PO SCH (21:34)
[2019-12-20] MEDS: Carbidopa/Levodopa 25/100 TABLET PO SCH (21:34)
[2019-12-21 01:39] LABS: Basophils % 0.8 %; Eosinophils # 0.4 K/mcL (0.0-0.6); Eosinophils % 8.2 %; Hematocrit 36.3 % (35.3-44.9); Hemoglobin 12.2 g/dL (11.5-15.4); Immature Granulocytes % 0.4 % (0-4); Lymphocytes # 1.8 K/mcL (0.6-4.6); Lymphocytes % 33.7 %; Mean Corpuscular HGB Conc 33.6 g/dL (31.6-35.5); Mean Corpuscular Volume 89.4 fL (83.0-100.0); Mean Platelet Volume 11.8 fL (9.4-12.4); Monocytes # 0.5 K/mcL (0.0-1.3); Monocytes % 9.6 %; Neutrophils # 2.5 K/mcL (1.6-8.9); Platelet Count 135 K/mcL (140-400); Red Blood Count 4.06 M/mcL (3.82-4.97); Red Cell Distribution Width 12.8 % (11.5-14.5); Segmented Neutrophils % 47.3 %; White Blood Count 5.2 K/mcL (4.3-11.1)
[2019-12-21 02:00] LABS: BUN/Creatinine Ratio 52 (6-26); Blood Urea Nitrogen 29 mg/dL (8-23); Calcium 8.9 mg/dL (8.6-10.3); Carbon Dioxide 30 mEq/L (23-29); Chloride 106 mEq/L (98-107); Glucose 148 mg/dL (70-105); Osmolality,Calculated 305 (280-300); Potassium 3.7 mEq/L (3.5-5.1); Sodium 143 mEq/L (136-145); eGFR For African Americans > 60 (> 60); eGFR For Non-African Americans > 60 (> 60)
[2019-12-21 03:03] LABS: Platelet Estimate Normal (Normal)
[2019-12-21] MEDS: Insulin LISPRO 300 UNITS/3 ML VIAL SQ SCH ×4 (08:25→21:19)
[2019-12-21] MEDS: Lactobacillus 1 EACH CAP.SPRINK PO SCH ×2 (09:48→21:18)
[2019-12-21] MEDS: amLODIPine 5 MG TABLET PO SCH (09:48)
[2019-12-21] MEDS: ARIPiprazole 5 MG TABLET PO SCH (09:49)
[2019-12-21] MEDS: Aspirin Enteric Coated 81 MG Tablet PO SCH (09:49)
[2019-12-21] MEDS: Divalproex (12 HR) 250 MG TABLET PO SCH ×2 (09:49→21:17)
[2019-12-21] MEDS: Carbidopa/Levodopa 25/100 TABLET PO SCH ×3 (09:49→21:18)
[2019-12-21] MEDS: lisinopriL 20 MG TABLET PO SCH (09:49)
[2019-12-22 05:06] LABS: Basophils % 0.9 %; Eosinophils # 0.3 K/mcL (0.0-0.6); Eosinophils % 7.6 %; Hematocrit 37.1 % (35.3-44.9); Hemoglobin 12.4 g/dL (11.5-15.4); Immature Granulocytes % 0.7 % (0-4); Lymphocytes # 1.8 K/mcL (0.6-4.6); Lymphocytes % 40.2 %; Mean Corpuscular HGB Conc 33.4 g/dL (31.6-35.5); Mean Corpuscular Volume 89.6 fL (83.0-100.0); Mean Platelet Volume 11.3 fL (9.4-12.4); Monocytes # 0.3 K/mcL (0.0-1.3); Monocytes % 6.9 %; Neutrophils # 1.9 K/mcL (1.6-8.9); Platelet Count 141 K/mcL (140-400); Red Blood Count 4.14 M/mcL (3.82-4.97); Red Cell Distribution Width 12.7 % (11.5-14.5); Segmented Neutrophils % 43.7 %; White Blood Count 4.4 K/mcL (4.3-11.1)
[2019-12-22 05:31] LABS: BUN/Creatinine Ratio 43 (6-26); Blood Urea Nitrogen 23 mg/dL (8-23); Calcium 8.3 mg/dL (8.6-10.3); Carbon Dioxide 29 mEq/L (23-29); Chloride 107 mEq/L (98-107); Glucose 130 mg/dL (70-105); Osmolality,Calculated 301 (280-300); Potassium 3.8 mEq/L (3.5-5.1); Sodium 143 mEq/L (136-145); eGFR For African Americans > 60 (> 60); eGFR For Non-African Americans > 60 (> 60)
[2019-12-22] MEDS: amLODIPine 5 MG TABLET PO SCH (08:37)
[2019-12-22] MEDS: ARIPiprazole 5 MG TABLET PO SCH (08:37)
[2019-12-22] MEDS: Divalproex (12 HR) 250 MG TABLET PO SCH (08:37)
[2019-12-22] MEDS: Insulin LISPRO 300 UNITS/3 ML VIAL SQ SCH (08:37)
[2019-12-22] MEDS: Lactobacillus 1 EACH CAP.SPRINK PO SCH (08:37)
[2019-12-22] MEDS: lisinopriL 20 MG TABLET PO SCH (08:37)
[2019-12-22] MEDS: Carbidopa/Levodopa 25/100 TABLET PO SCH (08:37)
[2019-12-22] MEDS: Aspirin Enteric Coated 81 MG Tablet PO SCH (08:37)
[2019-12-22 10:28] VITALS: BP 137/71
[2019-12-22 12:44] LABS: Estimated Average Glucose 160 mg/dl
== END 2019-12-22 12:35 | disposition home or self-care (01) | DRG 69 ==
LOC: INPPIK 10:49 → EMEROOPIK 10:49 → INPPIK 14:10
PROVIDERS: ADMIT Family Medicine; ATTEND Family Medicine